=== PATIENT | female | born 1940 | race Caucasian/White ===

== ENCOUNTER 2020-08-19 20:29 | Emergency (ER) | payer OTHER ==
[~2020-08-19] VITALS: Ht 157.5 cm; Wt 79.8 kg
[2020-08-19 20:55] VITALS: Ht 157.5 cm; Wt 79.8 kg
[2020-08-19 21:31] LABS: BASOPHIL % 1.3 % (0.2-1.3); PLATELET COUNT 236 x10^3mcL (179-408)
[2020-08-19 21:34] LABS: RED CELL DISTRIBUTION WIDTH 14.9 % (12.3-17.7)
[2020-08-19 21:40] LABS: CARBON DIOXIDE 28.4 mmol/L (21-32); CHLORIDE SERUM 105 mmol/L (98-107); GLUCOSE SERUM 98 mg/dL (74-106); POTASSIUM SERUM 3.7 mmol/L (3.5-5.1); SODIUM SERUM 140 mmol/L (136-145)
[2020-08-19 21:43] LABS: ALBUMIN 4.1 g/dL (3.4-5.0); ALKALINE PHOSPHATASE 59 U/L (46-116); ALT/SGPT 33 U/L (14-59); AST/SGOT 19 U/L (15-37); TOTAL PROTEIN, SERUM 7.5 g/dL (6.4-8.2)
[2020-08-19 23:07] VITALS: BP 172/64
== END 2020-08-19 23:07 | disposition home or self-care (01) ==
LOC: ED 20:29
PROVIDERS: Emergency Medicine
DX: I10 Essential (primary) hypertension (principal)
CPT/HCPCS: 83880